=== PATIENT | male | born 1960 | race Caucasian/White ===

== ENCOUNTER 2016-08-20 16:15 | Emergency (ER) | payer OTHER ==
[~2016-08-20 16:15] MED LIST: ALEVE220 M1 PO; ALKA-SELTZER P1 EAC8 PO; AMOXICILLIN500 M1 PO; BENZONATATE PO; FLEXERIL PO; FLEXERIL10 MG PO; FLONASE 0.05% N16 G1; IBUPROFEN800 MG PO; LORTAB 5/500 TA1 TA1 PO; MEDROL DOSEPAK4 MG PO; MOBIC PO; NAPROSYN250 M1 PO; NO MEDICATIONS; PREDNISONE PO; PRILOSEC20 MG DOB; PROMETH-CODEIN 65 ML PO; TRAMADOL HCL50 M2 PO; TYLENOL #3 PO; ULTRAM PO; VOLTAREN75 MG PO; ZITHROMAX PO
== END 2016-08-20 19:05 | disposition home or self-care (01) ==
LOC: CFTX 16:15 → CED 16:15 → CFTX 18:52
DX: M54.9 Dorsalgia, unspecified (principal); Z76.0 Encounter for issue of repeat prescription; G89.29 Other chronic pain; F17.210 Nicotine dependence, cigarettes, uncomplicated
CPT/HCPCS: 96372; 99283; J1100